=== PATIENT | male | born 1935 | race Caucasian/White ===

== ENCOUNTER 2024-04-13 15:28 | Emergency (ER) | payer OTHER ==
--- OUTSIDE RECORDS SUMMARY | 2024-04-13 15:30 | XMS REPORT | Continuity of Care Document ---
Author Name Unknown Address [address] [facility] [place] [place] [address] [facility] thconnect Address [address] [facility] [place] [place] [address] Care Team Providers Care Preventive Medicine Physician Name Role Phone DARINEL GARCÍA Primary Care Physician Unavailab le RADIOLOGY Attending Clinician Unavailable DARINEL GARCÍA Admitting Clinician Unavailable Payers Payer Name Policy Type Policy Number Effective Date Expirati on Date Source [facility] [id number] 2023 00:00:00 Face++ (MEDICARE REPLACEMENT HMO) [id number] 00:00:00 Allergies, Adverse Reactions, Alerts Allergy Name Allergy Type Status Severity Reaction(s) Onset Date Inactive Date Treating Clinician Comments Source NO KNOWN ALLERGIE S Drug Class Active Univers [facility] Encounters Start Date/Time End Date/Time Encounter Type Admission Type Attending Clinicians Care Facility Care Department Encounter ID Source 2024-01-06 10:30:57 2024-01-06 23:59:00 Outpatient R RADIOLOGY [facility] [id number] [facility] 2021-04-06 08:01:00 2021-04-06 08:01:00 [place] [id number] [facility]
[2024-04-13] MEDS ORDERED: ACETAMINOPHEN 500 MG TAB ONE (15:43)
--- NOTE | 2024-04-13 16:29 | RAD REPORT ---
EXAMINATION: CT MAXILLOFACIAL WITHOUT CONTRAST CLINICAL INDICATION: Facial pain status post fall TECHNIQUE: Axial images were obtained through the facial bones and orbits without intravenous contras t. Sagittal and coronal reconstructions were created from the data. One or more of the following dose reduction techniques were used: Automated exposure control, adjustment of the mA and/or kV accor ding to patient size, and/or iterative reconstruction. Unless otherwise specified, incidental findings do not require dedicated imaging follow-up. COMPARISON: No prior exam. FINDINGS: Left lateral periorbital hematoma. A facial fracture not seen. No TMJ dislocation. Fluid within the sinuses/mastoids not seen. Sphenoid sinus mucoperiosteal thickening. Sclerosis involving the right and left mandible near midline IMPRESSION: Negative for a facial fracture Sclerosis involving the mandible likely benign. Follow-up CT in 3 months could be obtained to assess for stability
--- NOTE | 2024-04-13 16:30 | RAD REPORT ---
EXAMINATION: CT HEAD WITHOUT CONTRAST CT CERVICAL SPINE WITHOUT CONTRAST CLINICAL INDICATION: Head and neck injury status post fall. Head and neck pain TECHNIQUE: Axial CT images from the skull base to the vertex without intravenous contrast. Axial CT i mages through the cervical spine were obtained without intravenous contrast. Sagittal and coronal reformatted images were created from the data set. Coronal and sagittal reformatted images were creat ed from the data set. One or more of the following dose reduction techniques were used: Automated exposure control, adjustment of the mA and/or kV according to patient size, and/or iterative reconstr uction. Unless otherwise specified, incidental findings do not require dedicated imaging follow-up. [id number]. Comparison: none FINDINGS: Left frontal hematoma. Intracranial bleed not noted. Ventricles are normal in caliber. No significant hypodensity within the brain No extra-axial fluid collection. No fluid within the sinuses/mastoids. Prominent mucoperiosteal thickening sphenoid sinus No fracture or dislocation is seen involving the cervical spine. Moderate posterior lateral osteophyte C5-6 compresses the right aspect of the spinal cord.. Prominent spondylosis cervical spine IMPRESSION: No acute intracranial abnormality noted A cervical fracture is not seen. If the patient continues to have symptoms to suggest acute BUTTERMAKER/spinal pathology then MRI would be rec ommended
--- NOTE | 2024-04-13 16:42 | RAD REPORT ---
Exam:Wrist Left 3 View HISTORY: Left wrist pain FINDINGS: No fracture or dislocation seen If the patient continues to have symptoms to suggest an occult fracture then follow-up x-ray in 7 day s would be recommended.
[2024-04-13] MEDS ORDERED: DERMABOND SKIN ADHESIVE TOP ONE (16:49)
[2024-04-13] MEDS ORDERED: LIDOCAINE 2% W/EPI 1:200,000 MPF 20 ML VIAL IM ONE (16:56)
--- NOTE | 2024-04-13 17:29 | EDPHYS ---
Physician Documentation [facility] Name: Alf Connell Age: 89 yrs Sex: Male : 1935 Arrival Date: 04/13/2024 Time: 15:28 Bed 14 Private MD: ED Physician Felix Heller HPI: 04/13 15:55 This 89 yrs old Male presents to ER via Ambulatory with complaints of Fall Injury, Head cp Injury Without LOC-Adult. 15:55 Details of fall: The patient fell from an upright position, while walking, and struck a cp concrete surface. Onset: The symptoms/episode began/occurred just prior to arrival. Associated injuries: The patient sustained injury to the head, hematoma, laceration, of the above left eye, pain, tenderness. Patient presents to ED after losing balance and falling, striking face against ground. No LOC. Historical: - Allergies: 15:40 No Known Allergies; kc6 - PMHx: 15:40 Hypertension; Hyperlipidemia; prostate cancer (Hyperlipidemia); kc6 - PSHx: 15:40 None; kc6 - Immunization history: Last tetanus immunization: unknown. - Infectious Disease History:: Denies. - Social history:: Smoking status: Patient denies any tobacco usage or history of. ROS: 16:00 Constitutional: Negative for body aches, chills, fever, poor PO intake, cp 16:00 Eyes: Negative for injury, pain, redness, and discharge, cp 16:00 Neck: Negative for pain with movement, pain at rest, stiffness, 16:00 Cardiovascular: Negative for chest pain, palpitations, 16:00 Respiratory: Negative for cough, shortness of breath, wheezing, 16:00 Abdomen/GI: Negative for abdominal pain, vomiting, diarrhea, constipation, 16:00 Skin: Positive for laceration(s), swelling, of the above left eye, 16:00 Neuro: Negative for altered mental status, loss of consciousness, 16:00 All other systems are negative, Exam: 16:05 Constitutional: The patient appears in no acute distress, alert, awake, cp non-diaphoretic, well developed, well nourished, 16:05 Head/face: Noted is hematoma, that is mild, of the left cheek, a laceration(s), that cp is deep, that is linear, of the above left eye, tenderness, 16:05 Eyes: Pupils: equal, round, and reactive to light and accomodation, Extraocular movements: intact throughout, Conjunctiva: normal, no exudate, no injection, 16:05 ENT: External ear(s): are unremarkable, Nose: is normal, Mouth: Lips: moist, Oral mucosa: moist, Posterior pharynx: Airway: no evidence of obstruction, patent, 16:05 Neck: C-spine: vertebral tenderness, is not appreciated, crepitus, is not appreciated, ROM/movement: pain, is not appreciated, limited range of motion, is not appreciated, 16:05 Chest/axilla: Inspection: normal, Palpation: is normal, no crepitus, no tenderness, 16:05 Cardiovascular: Rate: normal, 16:05 Respiratory: the patient does not display signs of respiratory distress, Respirations: normal, no use of accessory muscles, no retractions, labored breathing, is not present, Breath sounds: are clear throughout, no decreased breath sounds, no stridor, no wheezing, 16:05 Abdomen/GI: Inspection: abdomen appears normal, Palpation: abdomen is soft and non-tender, in all quadrants, 16:05 Back: pain, is absent, vertebral tenderness, is not appreciated, 16:05 Musculoskeletal/extremity: Exam is negative for decreased range of motion, deformity, injury, 16:05 Neuro: Orientation: to person, place \T\ time. Mentation: is normal, Motor: moves all fours, strength is normal, Gait: is steady, at a normal pace, without difficulty, Vital Signs: 15:37 BP 156 / 78; Pulse 79; Resp 18 S; Pulse Ox 97% on R/A; Weight 87.54 kg (R); Height 5 kc6 ft. 8 in. (R); Pain 0/10; 17:37 BP 160 / 84; Pulse 65; Resp 19; Temp 97.3; Pulse Ox 100% on R/A; MAP 107 mmHg; Pain tm6 0/10; 15:37 Body Mass Index 29.35 (87.54 kg, 172.72 cm) kc6 15:37 Pain Scale: Adult kc6 17:37 Pain Scale: Adult tm6 [place] Coma Score: 15:37 Eye Response: spontaneous(4). Motor Response: obeys commands(6). Verbal Response: kc6 oriented(5). Total: 15. Trauma Score (Adult): 15:37 Eye Response: spontaneous(1); Verbal Response: oriented(1); Motor Response: obeys kc6 commands(2); Systolic BP: > 89 mm Hg(4); Respiratory Rate: 10 to 29 per min(4); [place] Score: 15; Trauma Score: 12 Laceration: 17:30 Wound Repair of 2.5cm ( 1.0in ) subcutaneous laceration to above left eye. Linear cp shaped.. Distal neuro/vascular/tendon intact. Anesthesia: Wound infiltrated with 4 mls of 2% lidocaine. Wound prep: Simple cleansing by me. Skin closed with 4 5-0 Prolene using interrupted sutures and sterile technique. Dressed with Bacitracin. Patient tolerated well. MDM: 15:41 Medical Screening Exam initiated cp 16:00 Differential diagnosis: closed head injury, contusion, fracture, laceration, multiple cp trauma. 17:27 Data reviewed: vital signs, nurses notes, radiologic studies, CT scan, and as a result, cp I will discharge patient. 17:27 Counseling: I had a detailed discussion with the patient and/or guardian regarding the cp historical points, exam findings, and any diagnostic results supporting the discharge/admit diagnosis, radiology results, to return to the emergency department if symptoms worsen or persist or if there are any questions or concerns that arise at home. Response to treatment: the patient's symptoms have markedly improved after treatment, and as a result, I will discharge patient. Special discussion: Based on the patient's history, exam and DX evaluation, there is no indication for emergent intervention or inpatient [place]. It is understood by the patient/guardian that if the SXs persist or worsen they need to return immediately for re-evaluation. 04/13 15:45 Order name: CT Facial Bones W/O Con; Complete Time: 16:44 04/13 15:45 Order name: CT Head C Spine; Complete Time: 16:44 04/13 16:45 Interpretation: Reviewed report. 04/13 15:45 Order name: XRAY Wrist LEFT 3 view; Complete Time: 16:44 04/13 15:45 Order name: Wound Care; Complete Time: 15:56 cp Administered Medications: 16:50 Not Given (Patient Refused): [id number] mg PO once tm6 Disposition: 04/14 01:27 Chart complete. cp Disposition Summary: 04/13/24 17:28 Discharge Ordered Notes: Location: Home cp Problem: new cp Symptoms: have improved cp Condition: Stable cp Diagnosis - Fall on same level from slipping, tripping and stumbling without subsequent cp striking against object - Laceration without foreign body of left eyelid and periocular area cp Followup: cp - With: Private Physician - When: 1 week - Reason: Staple/Suture removal Discharge Instructions: - Discharge Summary Sheet cp - Head Injury, Adult cp - Facial Laceration cp Forms: - Medication Reconciliation Form cp - Antibiotic Education cp - Prescription Opioid Use cp - Patient Portal Instructions cp - Leadership Thank You Letter cp Signatures: Dispatcher [employer] EDMS Felix Paige PA PA cp Campbell, Kaitlyn, RN RN kc6 Nora Redmond RN tm6 Corrections: (The following items were deleted from the chart) 04/13 15:45 15:45 Wrist Left 3 View+RAD.RAD.BRZ ordered. EDMS EDMS 04/14 01:23 01:22 Wound Repair of 2.5cm ( 1.0in ) subcutaneous laceration to above left eye. Linear cp shaped.. Distal neuro/vascular/tendon intact. Anesthesia: Wound infiltrated with 4 mls of 2% lidocaine. Wound prep: Simple cleansing by me. Skin closed with 4 5-0 Prolene using interrupted sutures and sterile technique. Dressed with Bacitracin. Patient tolerated well. cp
--- NOTE | 2024-04-13 17:29 | ER ---
Nurse's Notes [facility] Name: Alf Connell Age: 89 yrs Sex: Male : 1935 Arrival Date: 04/13/2024 Time: 15:28 Bed 14 Private MD: Diagnosis: Fall on same level from slipping, tripping and stumbling without subsequent striking against object;Laceration without foreign body of left eyelid and periocular area Presentation: 04/13 15:37 Chief complaint: Patient states: he tripped and fell on the concrete and hit his head kc6 face first. denies LOC, takes a baby ASP daily. Care prior to arrival: None. Mechanism of Injury: Fall from standing position. Trauma event details: Injury occurred in the [facility], Injury occurred: on a street or highway. Injury occurred: April 13, 2024. 15:37 Acuity: MANJIT 3 kc6 15:37 Method Of Arrival: Ambulatory [facility] 15:40 Coronavirus screen: At this time, the client does not indicate any symptoms associated kc6 with coronavirus-19. Ebola Screen: No symptoms or risks identified at this time. Initial Sepsis Screen: Does the patient meet any 2 criteria? No. Patient's initial sepsis screen is negative. Does the patient have a suspected source of infection? No. Patient's initial sepsis screen is negative. Risk Assessment: Do you want to hurt yourself or someone else? Patient reports no desire to harm self or others. Onset of symptoms was April 13, 2024. Trauma Activation: Not Applicable Physician: ED Physician; Name: ; Notified At: ; Arrived At: Physician: General Surgeon; Name: ; Notified At: ; Arrived At: Physician: Radiology; Name: ; Notified At: ; Arrived At: Physician: Respiratory; Name: ; Notified At: ; Arrived At: Physician: Lab; Name: ; Notified At: ; Arrived At: Historical: - Allergies: 15:40 No Known Allergies; kc6 - PMHx: 15:40 Hypertension; Hyperlipidemia; prostate cancer (Hyperlipidemia); kc6 - PSHx: 15:40 None; kc6 - Immunization history: Last tetanus immunization: unknown. - Infectious Disease History:: Denies. - Social history:: Smoking status: Patient denies any tobacco usage or history of. Screenin:37 Abuse screen: Denies threats or abuse. Denies injuries from another. Tuberculosis kc6 screening: No symptoms or risk factors identified. 16:39 [facility] ED Fall Risk Assessment (Adult) History of falling in the last 3 months, tm6 including since admission Yes- single mechanical fall (1 pt) Confusion or Disorientation No (0 pts) Intoxicated or Sedated No (0 pts) Impaired Gait No (0 pts) Mobility Assist Device Used No (0 pt) Altered Elimination No (0 pt) Score/Fall Risk Level 0 - 2 = Low Risk Oriented to surroundings, Maintained a safe environment, Educated pt \T\ family on fall prevention, incl call for assistance when getting out of bed. Nutritional screening: No deficits noted. Primary Survey: 15:37 NO uncontrolled hemorrhage observed. A: The client is awake and alert. The airway is kc6 patent. The client is alert. Airway: patent. Breathing/Chest: Spontaneous respiratory effort, equal unlabored respirations, breath sounds clear bilaterally, regular pattern, symmetrical chest rise and fall. Respiratory effort: spontaneous, Breath sounds: clear, Respiratory pattern: regular, Chest inspection: symmetrical rise and fall of the chest. Circulation: No external hemorrhage present. Regular and strong central pulse, skin warm/dry/normal color. Hemorrhage: No external hemorrhage noted. Skin color: pink, Skin temperature: warm. Disability Pupils are equal, round, reactive to light and accommodation. Client is alert. Exposure/Environment: There is no evidence of uncontrolled external bleeding. Obvious injury(ies) are noted at this time: laceration to the left side of the face. Assessment: 15:37 General: Appears in no apparent distress. comfortable, well groomed, well developed, kc6 Behavior is calm, cooperative, appropriate for age. Pain: Complains of pain in left cheek and left eye. 15:40 General: Appears in no apparent distress. Behavior is calm, cooperative. Pain: Denies tm6 pain. Neuro: Level of Consciousness is awake, alert, obeys commands, Oriented to person, place, time, situation. Cardiovascular: Patient's skin is warm and dry. Respiratory: Airway is patent Respiratory effort is even, unlabored, Respiratory pattern is regular, symmetrical. GI: No signs and/or symptoms were reported involving the gastrointestinal system. Abdomen is flat, non-distended. : No signs and/or symptoms were reported regarding the genitourinary system. EENT: No signs and/or symptoms were reported regarding the EENT system. Derm: Wound noted left eye and face and left cheek Wound is small laceration to left eyebrow. Musculoskeletal: No signs and/or symptoms reported regarding the musculoskeletal system. 17:38 Reassessment: Patient and/or family updated on plan of care and expected duration. Pain tm6 level reassessed. Patient is alert, oriented x 3, equal unlabored respirations, skin warm/dry/pink. Vital Signs: 15:37 BP 156 / 78; Pulse 79; Resp 18 S; Pulse Ox 97% on R/A; Weight 87.54 kg (R); Height 5 kc6 ft. 8 in. (R); Pain 0/10; 17:37 BP 160 / 84; Pulse 65; Resp 19; Temp 97.3; Pulse Ox 100% on R/A; MAP 107 mmHg; Pain tm6 0/10; 15:37 Body Mass Index 29.35 (87.54 kg, 172.72 cm) kc6 15:37 Pain Scale: Adult kc6 17:37 Pain Scale: Adult tm6 [place] Coma Score: 15:37 Eye Response: spontaneous(4). Motor Response: obeys commands(6). Verbal Response: kc6 oriented(5). Total: 15. Trauma Score (Adult): 15:37 Eye Response: spontaneous(1); Verbal Response: oriented(1); Motor Response: obeys kc6 commands(2); Systolic BP: > 89 mm Hg(4); Respiratory Rate: 10 to 29 per min(4); [place] Score: 15; Trauma Score: 12 ED Course: 15:29 Patient arrived in ED. ra3 15:37 Patient has correct armband on for positive identification. kc6 15:37 Patient maintains SpO2 saturation greater than 95% on room air. kc6 15:38 Triage completed. kc6 15:39 Felix Paige PA is PHCP. cp 15:39 Felix Heller MD is Attending Physician. cp 15:40 Arm band placed on. kc6 15:45 Nora Redmond RN is Primary Nurse. tm6 16:04 CT Facial Bones W/O Con In Process Unspecified. EDMS 16:04 CT Head C Spine In Process Unspecified. EDMS 16:19 XRAY Wrist LEFT 3 view In Process Unspecified. EDMS 16:39 Provided Education on: use of call anderson. tm6 17:00 Assist provider with laceration repair on left eye that was 2.5 cm. or less using tm6 sutures. Set up tray. Performed by Felix GRIMALDO Patient tolerated well. 17:39 Patient did not have IV access during this emergency room visit. tm6 Administered Medications: 16:50 Not Given (Patient Refused): [id number] mg PO once tm6 Medication: 16:39 VIS not applicable for this client. tm6 Outcome: 17:28 Discharge ordered by . martin 17:39 Discharged to home ambulatory, with family, tm6 17:39 Condition: stable 17:39 Discharge instructions given to patient, family, Instructed on discharge instructions, follow up and referral plans. Demonstrated understanding of instructions, follow-up care, 17:39 Patient left the ED. tm6 Signatures: Dispatcher [employer] EDUT Felix Paige PA PA cp Campbell, Kaitlyn RN RN kc6 Nora Redmond RN RN tm6 Allegra Guevara 3
[2024-04-14 04:36] VITALS: BP 160/84; TEMP 97.3; O2SAT 100
== END 2024-04-13 17:39 | disposition home or self-care (01) ==
LOC: ER 15:28
DX: S01.112A Laceration without foreign body of left eyelid and periocular area, initial encounter (principal); W01.0XXA Fall on same level from slipping, tripping and stumbling without subsequent striking against object, initial encounter
CPT/HCPCS: 70450; 70486; 72125; 76377; 99283